=== PATIENT | female | born 1940 | race African-American/Black ===

== ENCOUNTER 2017-06-01 15:52 | Emergency (ER) | payer OTHER ==
[~2017-06-01] VITALS: Ht 162.6 cm; Wt 70.0 kg
[2017-06-01] MEDS ORDERED: SODIUM CHLORIDE 0.9% 500 ML IV ONE (17:23)
[2017-06-01 18:11] LABS: BASOPHILS % 0.5 % (0.0-2.0); EOSINOPHILS % 2.5 % (0.0-5.0); HEMATOCRIT. 31.5 % (36.0-48.0); HEMOGLOBIN. 10.1 g/dL (12.0-16.0); LYMPHOCYTES % 22.1 % (20.0-50.0); MEAN CORPUSCULAR HEMOGLOBIN 27.5 pg (28.0-32.0); MEAN CORPUSCULAR VOLUME 85.4 fL (81.0-99.0); MONOCYTES % 6.1 % (2.0-8.0); NEUTROPHILS % 68.8 % (40.0-76.0); PLATELET 301 x1000/uL (130-400); RED BLOOD CELL COUNT 3.68 mill/uL (4.2-5.4); RED CELL DISTRIBUTION WIDTH 15.6 % (11.6-14.6)
[2017-06-01 18:15] LABS: PROTHROMBIN TIME 10.1 sec
[2017-06-01 18:16] LABS: CHLORIDE 105 mEq/L (98-107)
[2017-06-01 18:21] LABS: CARBON DIOXIDE 23 mEq/L (21-32); ETHANOL BLOOD < 10 mg/dL
[2017-06-01 18:24] LABS: TROPONIN I < 0.02 ng/mL (0.00-0.04)
[2017-06-01 19:48] LABS: CLARITY URINE CLOUDY (CLEAR); COLOR URINE YELLOW (YELLOW); GLUCOSE URINE NEGATIVE (NEGATIVE); KETONES URINE NEGATIVE (NEGATIVE); LEUKOCYTE ESTERASE URINE 1+ (NEGATIVE); NITRITE URINE NEGATIVE (NEGATIVE); OCCULT BLOOD URINE NEGATIVE (NEGATIVE); PH URINE 7.5 (4.5-8.0); PROTEIN URINE NEGATIVE (NEGATIVE); SPECIFIC GRAVITY URINE 1.009 (1.005-1.030); UROBILINOGEN URINE 0.2 E.U./dL (0.2-1.0)
[2017-06-01 20:03] LABS: *AMPHETAMINES SCREEN URINE NEGATIVE (NEGATIVE); *BARBITURATES SCREEN URINE NEGATIVE (NEGATIVE); *BENZODIAZEPINES SCREEN URINE NEGATIVE (NEGATIVE); *COCAINE SCREEN URINE NEGATIVE (NEGATIVE); CANNABINOID URINE SCREEN NEGATIVE (NEGATIVE); METHADONE URINE SCREEN NEGATIVE (NEGATIVE); OPIATES URINE SCREEN NEGATIVE (NEGATIVE); PHENCYCLIDINE URINE SCREEN NEGATIVE (NEGATIVE)
[2017-06-01 22:28] VITALS: BP 1/75
== END 2017-06-01 22:25 | disposition short-term general hospital (02) ==
LOC: ER 16:11 → CANBEDREQ 06-02 05:53
DX: D64.9 Anemia, unspecified (principal); I10 Essential (primary) hypertension; E11.9 Type 2 diabetes mellitus without complications; R55 Syncope and collapse
CPT/HCPCS: 36415; 71010; 80053; 80305; 81001; 82962; 83880; 84484; 85025; 85610; 93005; 96360; 96361; 99285; G0482; J7040; J7030

== ENCOUNTER 2021-02-28 19:10 | Emergency (ER) | payer OTHER ==
[~2021-02-28] VITALS: Ht 162.6 cm; Wt 64.0 kg
[2021-02-28] MEDS ORDERED: ATOR-2 PO (19:17)
[2021-02-28] MEDS ORDERED: SPIR25TA6 PO (19:17)
[2021-02-28] MEDS ORDERED: FERR325T6 PO (19:17)
[2021-02-28] MEDS ORDERED: GLIP5TAB12 PO (19:17)
[2021-02-28] MEDS ORDERED: AMLO10TA80 PO (19:17)
[2021-02-28] MEDS ORDERED: ATEN-42 PO (19:17)
[2021-02-28] MEDS ORDERED: ASPI-1160 PO (19:17)
[2021-02-28] MEDS ORDERED: METF-874 PO (19:17)
[2021-02-28] MEDS ORDERED: FURO20TA4 PO (19:17)
[2021-02-28] MEDS ORDERED: LISI40TA13 PO (19:17)
[2021-02-28] MEDS ORDERED: ONDANSETRON 4MG ODT PO ONE (20:30)
[2021-02-28] MEDS ORDERED: ONDA4TAB5 MT (23:53)
[2021-03-01 00:49] VITALS: BP 106/57
== END 2021-03-01 00:50 | disposition home or self-care (01) ==
LOC: ER 19:10
DX: R11.2 Nausea with vomiting, unspecified (principal); R19.7 Diarrhea, unspecified; E86.0 Dehydration; E11.9 Type 2 diabetes mellitus without complications; I10 Essential (primary) hypertension; F17.290 Nicotine dependence, other tobacco product, uncomplicated; Z79.82 Long term (current) use of aspirin; Z79.899 Other long term (current) drug therapy
CPT/HCPCS: 93005; 99285; Q0162